=== PATIENT | female | born 1965 | race Caucasian/White ===

== ENCOUNTER 2022-02-10 13:50 | Observation (INO) | payer OTHER ==
[~2022-02-10] VITALS: Ht 154.9 cm; Wt 105.1 kg
[2022-02-10 14:18] LABS: HEMATOCRIT 38.1 % (37.0-47.0); HEMOGLOBIN 12.2 g/dl (12.0-16.0); IMMATURE GRANULOCYTES 0.3 % (0.0-5.0); MEAN CELL VOLUME 91.4 fL CALC (80.0-100.0); MEAN CORPUSCULAR HGB 29.3 pG CALC (26.0-32.0); NEUT# 4.59 thou/uL (2.00-7.15); RED BLOOD COUNT 4.17 mill/uL (4.20-5.60); RED CELL DISTRI WIDTH 14.4 % (11.5-15.5)
[2022-02-10 14:37] LABS: ALBUMIN 4.3 g/dL (3.2-5.0); ALKALINE PHOSPHATASE 115 u/l (38-126); ANION GAP 13 (6-22 (CALC)); BILIRUBIN, TOTAL 0.3 mg/dL (0.0-1.4); BUN 16 mg/dL (7-17); BUN/CREATININE RATIO 21 (12-20 (CALC)); CARBON DIOXIDE 25 mmol/l (22-30); CHLORIDE 106 mmol/l (95-108); CREATININE 0.8 mg/dL (0.5-1.0); GFR FOR AFR.AMER. > 60 ML/MIN (>=60 (CALC)); GFR OTHER RACES > 60 ML/MIN (>=60 (CALC)); POTASSIUM 3.9 mmol/l (3.5-5.1); SGOT/AST 28 u/l (14-36); SODIUM 140 mmol/l (137-146); TOTAL PROTEIN 7.5 g/dL (6.3-8.2)
[2022-02-10] MEDS ORDERED: LEVO-T100 MCG (15:13)
[2022-02-10] MEDS ORDERED: LISINOPRIL20 M1 PO (15:15)
[2022-02-10] MEDS ORDERED: VENLAFAXINE HCL50 MG PO (15:15)
[2022-02-10] MEDS ORDERED: VITAMIN D31000 UNI1 PO (15:16)
[2022-02-10] MEDS ORDERED: LIPITOR40 M1 PO (15:16)
[2022-02-10] MEDS ORDERED: CARVEDILOL12.5 MG PO (15:16)
[2022-02-10] MEDS ORDERED: TOPIRAMATE25 MG PO (15:17)
[2022-02-10] MEDS ORDERED: XARELTO20 MG PO (15:17)
[2022-02-10] MEDS ORDERED: LASIX 40 MG TAB40 MG PO (15:18)
[2022-02-10] MEDS ORDERED: MAGNESIUM OXID400 M1 (15:18)
[2022-02-10] MEDS ORDERED: GABAPENTIN800 MG PO (15:19)
[2022-02-10] MEDS ORDERED: PROBIOTI2 (15:20)
[2022-02-10] MEDS ORDERED: PROVENTIL HFA108 MCG IN (15:21)
[2022-02-10 16:10] VITALS: BP 139/66
[2022-02-10] MEDS ORDERED: EFFEXOR XR75 MG/CAP PO (16:37)
[2022-02-10 19:08] VITALS: BP 119/76
[2022-02-10 21:54] VITALS: BP 127/60
[2022-02-11] VITALS (10 sets, daily range): BP systolic 104–140; BP diastolic 43–92
[2022-02-12] VITALS (12 sets, daily range): BP systolic 100–155; BP diastolic 46–79
[2022-02-12 05:41] LABS: HEMATOCRIT 38.4 % (37.0-47.0); HEMOGLOBIN 11.8 g/dl (12.0-16.0); MEAN CELL VOLUME 93.2 fL CALC (80.0-100.0); MEAN CORPUSCULAR HGB 28.6 pG CALC (26.0-32.0); MEAN CORPUSCULAR HGB CONC 30.7 g/dL CAL (32.0-36.0); RED BLOOD COUNT 4.12 mill/uL (4.20-5.60); RED CELL DISTRI WIDTH 14.4 % (11.5-15.5)
[2022-02-12 06:07] LABS: BUN 22 mg/dL (7-17); BUN/CREATININE RATIO 26 (12-20 (CALC)); CHLORIDE 103 mmol/l (95-108); CREATININE 0.8 mg/dL (0.5-1.0); GFR FOR AFR.AMER. > 60 ML/MIN (>=60 (CALC)); GFR OTHER RACES > 60 ML/MIN (>=60 (CALC)); SODIUM 139 mmol/l (137-146)
[2022-02-12 06:09] LABS: ANION GAP 11 (6-22 (CALC)); CARBON DIOXIDE 31 mmol/l (22-30); POTASSIUM 5.6 mmol/l (3.5-5.1)
[2022-02-12 22:53] LABS: ANION GAP 17 (6-22 (CALC)); BUN 22 mg/dL (7-17); BUN/CREATININE RATIO 24 (12-20 (CALC)); CARBON DIOXIDE 27 mmol/l (22-30); CHLORIDE 99 mmol/l (95-108); CREATININE 0.9 mg/dL (0.5-1.0); GFR FOR AFR.AMER. > 60 ML/MIN (>=60 (CALC)); GFR OTHER RACES > 60 ML/MIN (>=60 (CALC)); MAGNESIUM 1.9 mg/dL (1.6-2.3); POTASSIUM 5.1 mmol/l (3.5-5.1); SODIUM 138 mmol/l (137-146)
[2022-02-13 00:02] VITALS: BP 104/69
[2022-02-13 04:06] VITALS: BP 106/61
[2022-02-13 06:38] LABS: HEMATOCRIT 37.2 % (37.0-47.0); HEMOGLOBIN 11.8 g/dl (12.0-16.0); MEAN CELL VOLUME 91.4 fL CALC (80.0-100.0); MEAN CORPUSCULAR HGB CONC 31.7 g/dL CAL (32.0-36.0); RED BLOOD COUNT 4.07 mill/uL (4.20-5.60); RED CELL DISTRI WIDTH 14.4 % (11.5-15.5)
[2022-02-13 06:56] LABS: ANION GAP 13 (6-22 (CALC)); BUN 23 mg/dL (7-17); BUN/CREATININE RATIO 27 (12-20 (CALC)); CARBON DIOXIDE 27 mmol/l (22-30); CHLORIDE 103 mmol/l (95-108); CREATININE 0.9 mg/dL (0.5-1.0); GFR FOR AFR.AMER. > 60 ML/MIN (>=60 (CALC)); GFR OTHER RACES > 60 ML/MIN (>=60 (CALC)); MAGNESIUM 2.3 mg/dL (1.6-2.3); POTASSIUM 4.9 mmol/l (3.5-5.1); SODIUM 139 mmol/l (137-146)
[2022-02-13] MEDS ORDERED: ZITHROMAX250 MG PO (09:33)
[2022-02-13] MEDS ORDERED: PREDNISONE10 MG PO (09:33)
[2022-02-13] MEDS ORDERED: IPRATROPIU0.5 MG/3 M IN (09:34)
[2022-02-13] MEDS ORDERED: LORTAB 7.57.5 MG PO (09:36)
[2022-02-13 11:05] VITALS: BP 148/67
== END 2022-02-13 13:11 | disposition home or self-care (01) | DRG 89 ==
LOC: ED 13:50 → ED-I 14:48 → ED 15:09 → MS2 15:10
PROVIDERS: Family Medicine; Internal Medicine; ADMIT Internal Medicine; ATTEND Internal Medicine
PROC: 0HQ1XZZ Repair Face Skin, External Approach (ICD-10-PCS; principal; 2022-02-10)
DX: S06.0X1A Concussion with loss of consciousness of 30 minutes or less, initial encounter (principal); J44.1 Chronic obstructive pulmonary disease with (acute) exacerbation; D68.2 Hereditary deficiency of other clotting factors; S01.81XA Laceration without foreign body of other part of head, initial encounter; I10 Essential (primary) hypertension; I50.9 Heart failure, unspecified; E78.5 Hyperlipidemia, unspecified; W20.8XXA Other cause of strike by thrown, projected or falling object, initial encounter; Y92.009 Unspecified place in unspecified non-institutional (private) residence as the place of occurrence of the external cause; Z79.01 Long term (current) use of anticoagulants; Z85.3 Personal history of malignant neoplasm of breast; Z85.43 Personal history of malignant neoplasm of ovary; Z85.51 Personal history of malignant neoplasm of bladder; Z20.822 Contact with and (suspected) exposure to COVID-19
CPT/HCPCS: J3475

== ENCOUNTER 2022-02-28 17:21 | Emergency (ER) | payer OTHER ==
[~2022-02-28] VITALS: Ht 154.9 cm; Wt 108.0 kg
[2022-02-28] VITALS (9 sets, daily range): BP systolic 122–147; BP diastolic 72–94
[~2022-02-28 17:21] MED LIST: CARVEDILOL12.5 MG PO; EFFEXOR XR75 MG/CAP PO; GABAPENTIN800 MG PO; IPRATROPIU0.5 MG/3 M IN; LASIX 40 MG TAB40 MG PO; LEVO-T100 MCG; LIPITOR40 M1 PO; LISINOPRIL20 M1 PO; LORTAB 7.57.5 MG PO; MAGNESIUM OXID400 M1; PREDNISONE10 MG PO; PROBIOTI2; PROVENTIL HFA108 MCG IN; TOPIRAMATE25 MG PO; VENLAFAXINE HCL50 MG PO; VITAMIN D31000 UNI1 PO; XARELTO20 MG PO; ZITHROMAX250 MG PO
[2022-02-28] MEDS ORDERED: PERCOCET 5/325M1 TAB PO (18:36)
[2022-02-28] MEDS ORDERED: PREDNISONE50 MG PO (18:36)
== END 2022-02-28 19:06 | disposition home or self-care (01) | DRG 554 ==
LOC: ED 17:21
DX: M16.12 Unilateral primary osteoarthritis, left hip (principal); I10 Essential (primary) hypertension; F32.A Depression, unspecified

== ENCOUNTER 2022-03-04 13:33 | Emergency (ER) | payer OTHER ==
[2022-03-04] VITALS (8 sets, daily range): BP systolic 121–145; BP diastolic 77–90
[~2022-03-04] VITALS: Ht 154.9 cm; Wt 103.0 kg
[~2022-03-04 13:33] MED LIST changes: +PERCOCET 5/325M1 TAB PO; +PREDNISONE50 MG PO
[2022-03-04] MEDS ORDERED: PERCOCET 5/325M1 TAB PO (18:32)
[2022-03-04] MEDS ORDERED: CYCLOBENZAPRINE10 MG PO (18:32)
== END 2022-03-04 18:45 | disposition home or self-care (01) | DRG 538 ==
LOC: ED 13:33
DX: S76.012A Strain of muscle, fascia and tendon of left hip, initial encounter (principal); I10 Essential (primary) hypertension; X58.XXXA Exposure to other specified factors, initial encounter

== ENCOUNTER 2022-03-13 19:29 | Emergency (ER) | payer OTHER ==
[2022-03-13] VITALS (8 sets, daily range): BP systolic 110–155; BP diastolic 50–91
[~2022-03-13] VITALS: Ht 154.9 cm; Wt 110.0 kg
[~2022-03-13 19:29] MED LIST changes: +CYCLOBENZAPRINE10 MG PO
[2022-03-13 20:26] LABS: HEMATOCRIT 35.3 % (37.0-47.0); HEMOGLOBIN 11.2 g/dl (12.0-16.0); IMMATURE GRANULOCYTES 0.5 % (0.0-5.0); MEAN CELL VOLUME 93.4 fL CALC (80.0-100.0); MEAN CORPUSCULAR HGB 29.6 pG CALC (26.0-32.0); MEAN CORPUSCULAR HGB CONC 31.7 g/dL CAL (32.0-36.0); NEUT# 4.15 thou/uL (2.00-7.15); RED BLOOD COUNT 3.78 mill/uL (4.20-5.60); RED CELL DISTRI WIDTH 14.4 % (11.5-15.5)
[2022-03-13 20:37] LABS: ALBUMIN 4.4 g/dL (3.2-5.0); ALKALINE PHOSPHATASE 114 u/l (38-126); ANION GAP 15 (6-22 (CALC)); BILIRUBIN, TOTAL 0.2 mg/dL (0.0-1.4); BUN 23 mg/dL (7-17); BUN/CREATININE RATIO 24 (12-20 (CALC)); CARBON DIOXIDE 31 mmol/l (22-30); CHLORIDE 104 mmol/l (95-108); CREATININE 0.9 mg/dL (0.5-1.0); GFR FOR AFR.AMER. > 60 ML/MIN (>=60 (CALC)); GFR OTHER RACES > 60 ML/MIN (>=60 (CALC)); SGOT/AST 29 u/l (14-36); SODIUM 145 mmol/l (137-146); TOTAL PROTEIN 7.4 g/dL (6.3-8.2)
[2022-03-13 20:41] LABS: INTERNATIONAL NORMALIZED RATIO 1.1 RATIO (0.7-1.3); PROTHROMBIN TIME 10.6 SECONDS (9.0-12.5)
[2022-03-13] MEDS ORDERED: LORTAB 1010 MG PO (23:13)
[2022-03-14 01:02] VITALS: BP 135/60
== END 2022-03-14 01:14 | disposition home or self-care (01) | DRG 554 ==
LOC: ED 19:29
PROVIDERS: Emergency Medicine
DX: M87.852 Other osteonecrosis, left femur (principal); M87.851 Other osteonecrosis, right femur; M25.552 Pain in left hip
CPT/HCPCS: Q9967

== ENCOUNTER 2022-05-05 12:37 | Emergency (ER) | payer OTHER ==
[~2022-05-05] VITALS: Ht 154.9 cm; Wt 97.5 kg
[2022-05-05] VITALS (7 sets, daily range): BP systolic 99–158; BP diastolic 58–90
[~2022-05-05 12:37] MED LIST changes: +LORTAB 1010 MG PO
[2022-05-05 15:17] LABS: BASO% 0.3 % (0-3); HEMATOCRIT 42.8 % (37.0-47.0); HEMOGLOBIN 13.9 g/dl (12.0-16.0); IMMATURE GRANULOCYTES 0.1 % (0.0-5.0); LYMPH% 25.3 % (15-41); MEAN CORPUSCULAR HGB 29.9 pG CALC (26.0-32.0); MEAN CORPUSCULAR HGB CONC 32.5 g/dL CAL (32.0-36.0); MONO% 7.8 % (2-13); NEUT# 5.79 thou/uL (2.00-7.15); NEUT% 65.5 % (42-76); RED BLOOD COUNT 4.65 mill/uL (4.20-5.60); RED CELL DISTRI WIDTH 13.4 % (11.5-15.5)
[2022-05-05 15:40] LABS: ALBUMIN 4.9 g/dL (3.2-5.0); ALKALINE PHOSPHATASE 123 u/l (38-126); AMYLASE 76 u/l (30-110); ANION GAP 12 (6-22 (CALC)); BUN 21 mg/dL (7-17); BUN/CREATININE RATIO 27 (12-20 (CALC)); CARBON DIOXIDE 28 mmol/l (22-30); CHLORIDE 103 mmol/l (95-108); CREATININE 0.8 mg/dL (0.5-1.0); GFR FOR AFR.AMER. > 60 ML/MIN (>=60 (CALC)); GFR OTHER RACES > 60 ML/MIN (>=60 (CALC)); LIPASE 82 u/l (23-300); POTASSIUM 4.1 mmol/l (3.5-5.1); SGOT/AST 24 u/l (14-36); SODIUM 140 mmol/l (137-146); TOTAL PROTEIN 8.4 g/dL (6.3-8.2)
[2022-05-05 15:51] LABS: BILIRUBIN, TOTAL 0.4 mg/dL (0.0-1.4)
[2022-05-05 16:50] LABS: URINE BILIRUBIN - DIPSTICK NEGATIVE (NEGATIVE); URINE BLOOD DIPSTICK NEGATIVE (NEGATIVE); URINE COLOR YELLOW; URINE GLUCOSE - DIPSTICK NEGATIVE (NEGATIVE); URINE KETONE NEGATIVE (NEGATIVE); URINE LEUK ESTERASE NEGATIVE (NEGATIVE); URINE PH 5.5 (4.5-8.0); URINE PROTEIN - DIPSTICK NEGATIVE (NEG-TRACE); URINE SPECIFIC GRAVITY >=1.030; URINE UROBILINOGEN - DIPSTICK 0.2 E.U./dL (0.2)
[2022-05-05 16:56] LABS: URINE NITRITE - DIPSTICK NEGATIVE (Negative)
[2022-05-05] MEDS ORDERED: ZOFRAN4 MG/TAB PO (17:05)
== END 2022-05-05 17:22 | disposition home or self-care (01) | DRG 392 ==
LOC: ED 12:37
PROVIDERS: Nurse Practitioner
DX: R10.12 Left upper quadrant pain (principal); K59.00 Constipation, unspecified

== ENCOUNTER 2022-07-09 10:24 | Observation (INO) | payer OTHER ==
[2022-07-09] VITALS (20 sets, daily range): BP systolic 92–140; BP diastolic 50–101
[~2022-07-09] VITALS: Ht 154.9 cm; Wt 100.0 kg
[~2022-07-09 10:24] MED LIST changes: +ZOFRAN4 MG/TAB PO
[2022-07-09 11:17] LABS: BASO% 0.3 % (0-3); EOS% 1.8 % (0-8); HEMOGLOBIN 15.7 g/dl (12.0-16.0); LYMPH% 25.9 % (15-41); MEAN CELL VOLUME 92.1 fL CALC (80.0-100.0); MEAN CORPUSCULAR HGB 28.3 pG CALC (26.0-32.0); MEAN CORPUSCULAR HGB CONC 30.7 g/dL CAL (32.0-36.0); MONO% 9.9 % (2-13); NEUT# 2.45 thou/uL (2.00-7.15); NEUT% 62.1 % (42-76); RED BLOOD COUNT 5.55 mill/uL (4.20-5.60); RED CELL DISTRI WIDTH 13.7 % (11.5-15.5)
[2022-07-09 11:19] LABS: HEMATOCRIT 51.1 % (37.0-47.0)
[2022-07-09 11:33] LABS: ALBUMIN 4.3 g/dL (3.2-5.0); ALKALINE PHOSPHATASE 104 u/l (38-126); ANION GAP 12 (6-22 (CALC)); BILIRUBIN, TOTAL 0.4 mg/dL (0.02-1.3); BUN 35 mg/dL (7-17); BUN/CREATININE RATIO 32 (12-20 (CALC)); CARBON DIOXIDE 33 mmol/l (22-30); CHLORIDE 101 mmol/l (95-108); CREATININE 1.1 mg/dL (0.5-1.0); GFR FOR AFR.AMER. > 60 ML/MIN (>=60 (CALC)); GFR OTHER RACES 51 ML/MIN (>=60 (CALC)); POTASSIUM 4.2 mmol/l (3.5-5.1); SGOT/AST 37 u/l (14-36); SODIUM 141 mmol/l (137-146); TOTAL PROTEIN 7.2 g/dL (6.3-8.2)
[2022-07-09 12:09] LABS: INTERNATIONAL NORMALIZED RATIO 1.4 RATIO (0.7-1.3); PROTHROMBIN TIME 13.6 SECONDS (9.0-12.5)
[2022-07-09 14:53] LABS: URINE BILIRUBIN - DIPSTICK NEGATIVE (NEGATIVE); URINE BLOOD DIPSTICK NEGATIVE (NEGATIVE); URINE COLOR YELLOW; URINE GLUCOSE - DIPSTICK NEGATIVE (NEGATIVE); URINE KETONE NEGATIVE (NEGATIVE); URINE PH 5.5 (4.5-8.0); URINE PROTEIN - DIPSTICK NEGATIVE (NEG-TRACE); URINE SPECIFIC GRAVITY 1.025; URINE UROBILINOGEN - DIPSTICK 0.2 E.U./dL (0.2)
[2022-07-09 15:00] LABS: URINE LEUK ESTERASE SMALL (NEGATIVE); URINE NITRITE - DIPSTICK NEGATIVE (Negative)
[2022-07-09 15:07] LABS: URINE RBC 0-2 RBC/hpf (0-5); URINE SQUAMOUS EPITHELIAL CELL FEW EPI/hpf (0-FEW)
[2022-07-09] MEDS ORDERED: CRESTOR20 MG PO (17:50)
[2022-07-09] MEDS ORDERED: TOPIRAMATE25 MG PO (17:51)
[2022-07-09] MEDS ORDERED: OZEMPIC2 MG (17:52)
[2022-07-09] MEDS ORDERED: OXYBUTYNIN CHLOR5 M1 PO (17:52)
[2022-07-09] MEDS ORDERED: NAPROXEN250 MG PO (17:53)
[2022-07-09] MEDS ORDERED: BUPRENORPHIN2 MG SL (17:54)
[2022-07-09] MEDS ORDERED: [UNRECOGNIZED DRUG - OTHER] PO (17:55)
[2022-07-10 05:51] VITALS: BP 94/56
[2022-07-10 06:31] LABS: MEAN CELL VOLUME 94.1 fL CALC (80.0-100.0); MEAN CORPUSCULAR HGB 28.9 pG CALC (26.0-32.0); MEAN CORPUSCULAR HGB CONC 30.7 g/dL CAL (32.0-36.0); RED BLOOD COUNT 3.53 mill/uL (4.20-5.60); RED CELL DISTRI WIDTH 13.9 % (11.5-15.5)
[2022-07-10 06:32] LABS: HEMATOCRIT 33.2 % (37.0-47.0)
[2022-07-10 06:33] LABS: HEMOGLOBIN 10.2 g/dl (12.0-16.0)
[2022-07-10 06:39] LABS: ALBUMIN 3.7 g/dL (3.2-5.0); ALKALINE PHOSPHATASE 92 u/l (38-126); ANION GAP 8 (6-22 (CALC)); BILIRUBIN, TOTAL 0.1 mg/dL (0.02-1.3); BUN 26 mg/dL (7-17); BUN/CREATININE RATIO 33 (12-20 (CALC)); CARBON DIOXIDE 33 mmol/l (22-30); CHLORIDE 106 mmol/l (95-108); CREATININE 0.8 mg/dL (0.5-1.0); GFR FOR AFR.AMER. > 60 ML/MIN (>=60 (CALC)); GFR OTHER RACES > 60 ML/MIN (>=60 (CALC)); MAGNESIUM 2.5 mg/dL (1.6-2.3); POTASSIUM 4.6 mmol/l (3.5-5.1); SGOT/AST 32 u/l (14-36); SODIUM 142 mmol/l (137-146); TOTAL PROTEIN 6.3 g/dL (6.3-8.2)
[2022-07-10 06:51] VITALS: BP 94/56
[2022-07-10 10:17] VITALS: BP 142/72
[2022-07-10 10:26] VITALS: BP 142/72
== END 2022-07-10 12:47 | disposition left against medical advice (07) | DRG 149 ==
LOC: ED 10:24 → ED-I 14:00 → ED 14:37 → MS2 14:38
PROVIDERS: Emergency Medicine; Nurse Practitioner; ADMIT Internal Medicine; ATTEND Internal Medicine
DX: R42 Dizziness and giddiness (principal); R47.81 Slurred speech; R25.1 Tremor, unspecified; H53.2 Diplopia; D68.51 Activated protein C resistance; M87.9 Osteonecrosis, unspecified; I11.0 Hypertensive heart disease with heart failure; I50.9 Heart failure, unspecified; J44.9 Chronic obstructive pulmonary disease, unspecified; E03.9 Hypothyroidism, unspecified; F32.A Depression, unspecified; Z85.3 Personal history of malignant neoplasm of breast; Z85.51 Personal history of malignant neoplasm of bladder; Z85.43 Personal history of malignant neoplasm of ovary; Z86.711 Personal history of pulmonary embolism; Z79.01 Long term (current) use of anticoagulants; Z20.822 Contact with and (suspected) exposure to COVID-19